=== PATIENT | male | born 1950 | race African-American/Black ===

== ENCOUNTER → 2018-01-09 | Outpatient (CLI) | payer MEDICARE, OTHER ==
[~2018-01-09] MED LIST: methylPREDNISolone ACETATE 40 MG/ML VIAL.; methylPREDNISolone ACETATE 80 MG/ML VIAL.
== END ==
LOC: PNCL 10:07
DX: M48.061 Spinal stenosis, lumbar region without neurogenic claudication (principal); M54.16 Radiculopathy, lumbar region; M19.90 Unspecified osteoarthritis, unspecified site; I10 Essential (primary) hypertension; E11.9 Type 2 diabetes mellitus without complications; C85.80 Other specified types of non-Hodgkin lymphoma, unspecified site; I25.10 Atherosclerotic heart disease of native coronary artery without angina pectoris; G40.89 Other seizures; Z98.890 Other specified postprocedural states; Z79.899 Other long term (current) drug therapy
CPT/HCPCS: 62323; J1030; J1040

== ENCOUNTER → 2018-01-23 | Outpatient (CLI) | payer MEDICARE, OTHER ==
[~2018-01-23] MED LIST changes: +IOHEXOL 180 MG/ML 10 ML VIAL.
== END ==
LOC: PNCL 10:05
DX: M54.16 Radiculopathy, lumbar region (principal); M48.061 Spinal stenosis, lumbar region without neurogenic claudication; I13.0 Hypertensive heart and chronic kidney disease with heart failure and stage 1 through stage 4 chronic kidney disease, or unspecified chronic kidney disease; E11.22 Type 2 diabetes mellitus with diabetic chronic kidney disease; N18.9 Chronic kidney disease, unspecified; G30.0 Alzheimer's disease with early onset; F02.80 Dementia in other diseases classified elsewhere, unspecified severity, without behavioral disturbance, psychotic disturbance, mood disturbance, and anxiety; E78.00 Pure hypercholesterolemia, unspecified; J44.9 Chronic obstructive pulmonary disease, unspecified; Z85.828 Personal history of other malignant neoplasm of skin; Z85.07 Personal history of malignant neoplasm of pancreas; Z82.49 Family history of ischemic heart disease and other diseases of the circulatory system
CPT/HCPCS: 62323; J1030; J1040; Q9965

== ENCOUNTER → 2018-02-07 | Outpatient (CLI) | payer MEDICARE, OTHER ==
[~2018-02-07] MED LIST changes: -IOHEXOL 180 MG/ML 10 ML VIAL.
== END | disposition home or self-care (01) ==
LOC: PNCL 10:24
DX: M48.061 Spinal stenosis, lumbar region without neurogenic claudication (principal); M54.16 Radiculopathy, lumbar region; G30.9 Alzheimer's disease, unspecified; F02.80 Dementia in other diseases classified elsewhere, unspecified severity, without behavioral disturbance, psychotic disturbance, mood disturbance, and anxiety; I11.0 Hypertensive heart disease with heart failure; I50.9 Heart failure, unspecified; E78.00 Pure hypercholesterolemia, unspecified; J44.9 Chronic obstructive pulmonary disease, unspecified; Z85.07 Personal history of malignant neoplasm of pancreas; E11.9 Type 2 diabetes mellitus without complications; F17.200 Nicotine dependence, unspecified, uncomplicated; Z85.828 Personal history of other malignant neoplasm of skin; Z85.72 Personal history of non-Hodgkin lymphomas; Z98.890 Other specified postprocedural states; Z98.49 Cataract extraction status, unspecified eye
CPT/HCPCS: 62323; J1030; J1040

== ENCOUNTER → 2019-10-22 | Outpatient (CLI) | payer MEDICARE, OTHER ==
[2014-03-19 11:00] VITALS: BP 113/69
[~2019-10-22] MED LIST changes: +ACET325T9 PO; +AMLO5TAB4 PO; +ASCO500C PO; +ASPI-630 PO; +CARV25TA2 PO; +CHOL200027 PO; +CITA40TA12 PO; +CLON0.5T PO; +CRESTOR40 MG PO; +DESV100T PO; +DICL100G18 TP; +DIVA500T2 PO; +DONE10TA14 PO; +FENO48TA16 PO; +GABA600T7 PO; +ICOS1CAP PO; +INSU100I13 SQ; +INSU100V31 SQ; +LEVE100020 PO; +LIPITOR80 MG PO; +LISI-334 PO; +MECL-75 PO; +MEMA10TA PO; +MULT-245 PO; +NIAC1000 PO; +NICO1PAT25 TD; +NITR0.4T24 SL; +OMEG1CAP6 PO; +OMEG300C PO; +PREG75CA PO; +QUET400T7 PO; +QUET50TA9 PO; +RANO10002 PO; +SILD50TA PO; +TRIA1CAP3 PO; +ZOLP10TA PO; -methylPREDNISolone ACETATE 40 MG/ML VIAL.; -methylPREDNISolone ACETATE 80 MG/ML VIAL.
[2019-10-22 14:56] LABS: BASO # 0.1 x10^3/uL (0.0-0.2); BASO % 1 % (0-3); EOS # 0.1 x10^3/uL (0.0-0.7); EOS % 2 % (0-3); HEMATOCRIT 39.3 % (39.0-53.0); HEMOGLOBIN 12.9 g/dL (13.0-17.5); LYMPH # 2.1 x10^3/uL (1.0-4.8); LYMPH % 39 % (24-48); MEAN CORPUSCULAR HEMOGLOBIN 33 pg (25-35); MEAN CORPUSCULAR HGB CONC 33 g/dL (31-37); MEAN CORPUSCULAR VOLUME 101 fL (79-100); MONO # 0.4 x10^3/uL (0.0-1.1); MONO % 7 % (0-9); NEUT # 2.8 x10^3/uL (1.8-7.7); NEUT % 51 % (31-73); PLATELET COUNT 203 x10^3/uL (140-400); RED BLOOD COUNT 3.89 x10^6/uL (4.30-5.70); RED CELL DISTRIBUTION WIDTH 14.7 % (11.5-14.5); WHITE BLOOD COUNT 5.5 x10^3/uL (4.0-11.0)
[2019-10-22 15:09] LABS: ALBUMIN 3.5 g/dL (3.4-5.0); ALBUMIN/GLOBULIN RATIO 0.9 (1.0-1.7); CALCIUM 8.1 mg/dL (8.5-10.1); CREATININE 1.3 mg/dL (0.7-1.3); GFR 66.2; TOTAL BILIRUBIN 0.4 mg/dL (0.2-1.0); TOTAL PROTEIN 7.2 g/dL (6.4-8.2)
[2019-10-23 00:07] LABS: HEMOGLOBIN A1C 7.1 % (4.8-5.6)
== END | disposition home or self-care (01) ==
LOC: SURGPAT 12:13
PROVIDERS: ATTEND Neurological Surgery
DX: Z01.818 Encounter for other preprocedural examination (principal); M48.062 Spinal stenosis, lumbar region with neurogenic claudication; D17.79 Benign lipomatous neoplasm of other sites; Z79.899 Other long term (current) drug therapy; Z88.0 Allergy status to penicillin; Z91.013 Allergy to seafood; Z91.041 Radiographic dye allergy status
CPT/HCPCS: 36415; 80053; 83036; 85025; 87641

== ENCOUNTER 2019-11-26 07:50 | Observation (INO) | payer MEDICARE, OTHER ==
--- NOTE | 2019-11-23 15:09 | HP ---
ADMIT DATE: 11/26/2019. DATE OF SURGERY: 11/26/2019 HISTORY OF PRESENT ILLNESS: The patient is a pleasant 69-year-old who has difficulty with low back pain and pain which radiates into legs. I saw him in 03/2018. I have recommended lumbar laminectomy from L4-S1 for severe epidural lipomatosis. He notes severe pain with standing. He rates his pain a 10/10. Sitting gives him relief. He has had epidural steroid injections in the last year, which did help him just temporarily though. PAST MEDICAL HISTORY: Hypertension, macular degeneration, IgA gammopathy Hodgkin's, tobaccoism, ED, hypercholesterolemia, seizures, chronic kidney disease, obstructive sleep apnea, diabetes, peripheral neuropathy, COPD, coronary artery disease, depression. PAST SURGICAL HISTORY: Cataract surgery, left wrist surgery, right knee surgery, pacemaker insertion in 1985, stents in 2009 and 2010. FAMILY HISTORY: Hypertension and brain aneurysm, stroke, cancer, diabetes, Alzheimer, seizures, heart disease, spine problems. SOCIAL HISTORY: He is . Retired. Drinks alcohol 1 time per week. Currently smokes occasionally. ALLERGIES: PENICILLIN, SHELLFISH AND IODINE. CURRENT MEDICATIONS: NovoLog, Lantus, Depakote, gabapentin, Keppra, Seroquel, Ambien, Celexa, Coreg, aspirin, Norvasc, Lipitor, nitroglycerin, Nicoderm CQ, lisinopril, [facility], Crestor, TriCor, sildenafil citrate diclofenac. REVIEW OF SYSTEMS: A 12-point review of systems was obtained and is noncontributory except for that mentioned above. PHYSICAL EXAMINATION: NEUROSURGERY EXAMINATION: GENERAL APPEARANCE: Alert, pleasant, no acute distress. HEAD: Normocephalic and atraumatic. SKIN: Warm and dry. MUSCULOSKELETAL: Lumbar paraspinal muscle bulk is normal, restricted range of motion of the lumbar spine, [id number] tenderness of the lower lumbar spine with palpation, normal range of motion of the lower extremities bilaterally. EXTREMITIES: No clubbing, cyanosis or edema. NEUROLOGIC: Alert and oriented x 3, normal recent and remote memory. Strength 5/5 in bilateral lower extremities, sensory was intact to light touch in bilateral lower extremities. Reflexes are present and symmetric in lower extremities bilaterally, negative straight leg raising bilaterally, ambulates with a cane. IMAGING: I reviewed a lumbar MRI scan. On that study, there is significant lumbar epidural lipomatosis, which is at L4 through S1. ASSESSMENT/ PLAN: I continue to agree with my recommendation previously given. I do think he should undergo lumbar laminectomy from L4 through sacrum. I would include decompression of the spinal canal to help relieve the stenosis related to epidural lipomatosis. I spoke about the surgery in detail with the patient. I included the technique, risks, and expected postoperative course. He understands. He would like to go ahead. We will make the arrangements. JILL MELÉNDEZ MD DR: TY/lennox JOB#: [id number] / [id number] TRAVIS
[~2019-11-26] VITALS: Ht 177.8 cm; Wt 121.1 kg
[2019-11-26] VITALS (9 sets, daily range): BP systolic 124–169; BP diastolic 84–104
[~2019-11-26 07:50] MED LIST changes: +BACITRACIN 50,000 UNIT in IV NORMAL SALINE 1000ML BAG 1,000 ML IRR ONE; +BUPIVACAINE-EPI 0.5%-1:200000 MPF 30 ML VIAL. ONE; +GELATIN SPONGE SIZE 100. ONE; +HYDROmorphone 2 MG/ML VIAL IV PRN; +IV RINGERS,LACTATED 1000ML 1,000 ML IV SCH; +KETOROLAC 60 MG/2 ML VIAL. ONE; +LIDOCAINE 1% PF 2 ML VIAL. ID PRN; +MORPHINE SULFATE 2 MG/ML VIAL. IV PRN; +PROCHLORPERAZINE 10 MG/2 ML VIAL. IV PRN; +THROMBIN TOPICAL 20,000 UNIT SPRAY.SYRN KIT TP ONE; +fentaNYL PF VIAL 100 MCG/2 ML VIAL IV PRN
[2019-11-26] MEDS ORDERED: VANCOMYCIN 1GM IVPB FOR OMNI 250 ML IV PRN (08:00)
[2019-11-26] MEDS ORDERED: REMIFENTANIL 2 MG VIAL. IV ONE (10:16)
[2019-11-26] MEDS ORDERED: LIDOCAINE 2% PF 5 ML VIAL. ONE (10:16)
[2019-11-26] MEDS ORDERED: PROPOFOL 0 ML IV ONE (10:16)
[2019-11-26] MEDS ORDERED: ROCURONIUM 50 MG/5 ML VIAL. ONE (10:16)
[2019-11-26] MEDS ORDERED: ONDANSETRON PF 4 MG/2 ML VIAL. ONE (10:16)
[2019-11-26] MEDS ORDERED: PROPOFOL 20 ML IV ONE (10:16)
[2019-11-26] MEDS ORDERED: PHENYLEPHRINE 10 MG/ML VIAL. ONE (10:16)
[2019-11-26] MEDS ORDERED: DEXAMETHASONE SOD PHOS 20 MG/5 ML VIAL. ONE (10:16)
[2019-11-26] MEDS ORDERED: 0.9 % SODIUM CHLORIDE 20 ML VIAL. IJ ONE ×2 (10:17→10:58)
[2019-11-26] MEDS ORDERED: MINERAL OIL/PETROLATUM,WHITE OPHTH OINT 3.5GM TUBE. ONE (10:17)
[2019-11-26] MEDS ORDERED: GLYCOPYRROLATE 1 MG/5 ML VIAL. ONE (10:53)
[2019-11-26] MEDS ORDERED: ceFAZolin SODIUM IV Push 1 GM VIAL. IVP ONE ×2 (10:58→12:15)
[2019-11-26] MEDS ORDERED: DESFLURANE > 120 MINUTES IH ONE (11:03)
[2019-11-26] MEDS ORDERED: ALBUTEROL SULFATE 2.5 MG/3 ML NEBU. NEB ONE (11:30)
[2019-11-26] MEDS ORDERED: PROPOFOL 100 ML IV ONE (12:44)
[2019-11-26] MEDS ORDERED: PROPOFOL 50 ML IV ONE ×2 (12:44→13:30)
[2019-11-26] MEDS ORDERED: REMIFENTANIL 1 MG VIAL. IV ONE (13:06)
[2019-11-26] MEDS ORDERED: fentaNYL PF VIAL 100 MCG/2 ML VIAL ONE (13:47)
[2019-11-26] MEDS ORDERED: ACETAMINOPHEN 325 MG TABLET. PO PRN ×2 (14:30→14:45)
[2019-11-26] MEDS ORDERED: DICLOFENAC SODIUM 1% TOPICAL GEL 100GM TUBE. TP PRN (14:30)
[2019-11-26] MEDS ORDERED: clonazePAM 0.5 MG TABLET PO PRN (14:30)
[2019-11-26] MEDS ORDERED: ZOLPIDEM TARTRATE 5 MG PO PRN (14:30)
[2019-11-26] MEDS ORDERED: CALCIUM CARBONATE 500 MG TAB.CHEW PO PRN (14:45)
[2019-11-26] MEDS ORDERED: oxyCODONE/APAP 5/325 1 TAB TABLET PO PRN (14:45)
[2019-11-26] MEDS ORDERED: ONDANSETRON PF 4 MG/2 ML VIAL. IVP PRN (14:45)
[2019-11-26] MEDS ORDERED: fentaNYL PF VIAL 100 MCG/2 ML VIAL IVP PRN (14:45)
[2019-11-26] MEDS ORDERED: METHOCARBAMOL 750 MG TABLET PO PRN (14:45)
[2019-11-26] MEDS ORDERED: NALOXONE 0.4 MG/ML VIAL. IV PRN (14:45)
[2019-11-26] MEDS ORDERED: 0.9 % SODIUM CHLORIDE 10 ML DISP.SYRIN. IV PRN (14:45)
[2019-11-26] MEDS ORDERED: MAG HYDROX/ALUMINUM HYD/SIMETH 30 ML ORAL.SUSP PO PRN (14:45)
[2019-11-26] MEDS ORDERED: diphenhydrAMINE HCL 25 MG CAPSULE PO PRN (14:45)
[2019-11-26] MEDS ORDERED: DEXTROSE 50% 25 GM / 50ML DISP.SYRIN. IV PRN (14:45)
[2019-11-26] MEDS ORDERED: MAGNESIUM HYDROXIDE 2,400 MG/30 ML ORAL.SUSP. PO PRN (14:45)
[2019-11-26] MEDS ORDERED: ZOLPIDEM 5 MG TABLET. PO PRN (14:45)
[2019-11-26] MEDS ORDERED: INSULIN LISPRO 100 UNIT/ML 3ML VIAL for OP,RR ONLY. SQ PRN (15:00)
--- NOTE | 2019-11-26 15:03 | OP ---
DATE OF SURGERY: 11/26/2019 PREOPERATIVE DIAGNOSIS: Epidural lipomatosis with lumbar spinal stenosis, L4, L5, S1. POSTOPERATIVE DIAGNOSIS: Epidural lipomatosis with lumbar spinal stenosis, L4, L5, S1. OPERATIONS PERFORMED: L4, L5, S1 laminectomy with debulking of epidural lipomatosis and release of dural and nerve root compression. The operation was done with EMG monitoring, SSEP monitoring, fluoroscopy, microscopic dissection. SURGEON: Rodney Meléndez M.D. OUTPATIENT PHYSICAL THERAPIST ASSISTANT: RYAN Sim assisted with the surgery. She assisted with the exposures, the laminectomy, the removal of the epidural lipomatosis material as well as the closure. OPERATIVE INDICATIONS: The patient is a pleasant 69-year-old, who developed intractable back and bilateral leg pain, which was extremely severe and failed to improve with conservative measures. On imaging studies, he was found to have severe lumbar spinal stenosis related to epidural lipomatosis and I recommended lumbar microsurgery. I spoke with him about the operation, the technique, and the expected postoperative course and he wished to go ahead. DESCRIPTION OF PROCEDURE: Following general endotracheal anesthesia, the patient was placed on the Edmond table in a prone position. His lumbar region was prepped and draped in standard fashion. ASUNCION hose and A-V impulse boots were applied for DVT prophylaxis. The microscope was draped, fluoroscopy was draped and brought into the field. Monitoring was established. Ancef 3 grams was given less than 1 hour prior to initiation of the surgery. Using fluoroscopic guidance, a midline incision was made extending from upper L4-S1. I dissected down through the subcutaneous tissue, reflected the paraspinal muscles, and placed Lynch retractors with 80 and 90 mm blades. At this time, I brought in the microscope. I exposed the spinous processes and the laminae reflecting the paraspinal musculature. I used a conical bur and drilled away the spinous processes and then switched to a matchstick bur and drilled a laminectomy extending from S1 through L5 up through L4. I then used a 2.5 and 4 mm Kerrison's beginning at L4 and working inferiorly and I trimmed bone and worked to visualize the second epidural lipomatosis material and I worked removing the ligament and then widely exposing the area. I then went back and began to tease back and remove fatty tissue using a Fabrice dental. I actually got out of the bone slightly and was able to remove a considerable amount of fat and the dura moved posteriorly very nicely. Over S1, I again went out laterally and inferiorly and removed further fatty material and again fully decompressed. At this point, then I removed the retractors, obtained hemostasis in the muscle. I irrigated copiously. At this point, this portion of the operation was somewhat tedious, the patient was quite deep, and the operation moved slowly at this point, but as time passed, I was able to obtain excellent hemostasis. I closed the muscular layer with interrupted absorbable sutures, followed by fascial closure, followed by subcutaneous tissue, followed by the skin with a 4-0 subcuticular stitch. The operation went very well. There were no problems with monitoring throughout. I felt that we had an excellent decompression. RODNEY MELÉNDEZ MD DR: TY/lennox JOB#: [id number] / [id number] TRAVIS
[2019-11-26] MEDS ORDERED: MECLIZINE HCL 12.5 MG TABLET. PO PRN (16:30)
[2019-11-26] MEDS ORDERED: POTASSIUM CL 20MEQ-0.45% NACL 1,000 ML IV SCH (16:45)
[2019-11-26] MEDS: GABAPENTIN 300 MG CAPSULE. PO SCH ×2 (17:59→20:51)
[2019-11-26] MEDS: DIVALPROEX DELAYED RELEASE 500 MG TABLET.DR. PO SCH ×2 (17:59→20:51)
[2019-11-26] MEDS: CARVEDILOL 12.5 MG TABLET. PO SCH (17:59)
[2019-11-26] MEDS: oxyCODONE/APAP 5/325 1 TAB TABLET PO PRN ×2 (18:00→22:58)
[2019-11-26] MEDS: NICOTINE 14MG PATCH. TD SCH (18:03)
[2019-11-26] MEDS: INSULIN LISPRO 300 UNITS/3 ML VIAL. SQ SCH (18:08)
[2019-11-26] MEDS: DOCUSATE SODIUM 100 MG CAPSULE. PO SCH (20:51)
[2019-11-26] MEDS: levETIRAcetam 500 MG TABLET PO SCH (20:51)
[2019-11-26] MEDS ORDERED: QUETIAPINE FUMARATE 400 MG PO SCH (21:00)
[2019-11-26] MEDS ORDERED: QUEtiapine 50 MG TAB.ER.24H. PO SCH (21:00)
[2019-11-26] MEDS ORDERED: INSULIN GLARGINE SYRINGE. SQ SCH (21:00)
[2019-11-26] MEDS ORDERED: NON FORMULARY ITEM (Rosuvastatin Calcium (Crestor) 20 MG) PO SCH (21:00)
[2019-11-26] MEDS ORDERED: ATORVASTATIN CALCIUM 40 MG TABLET. PO SCH (21:00)
[2019-11-26] MEDS ORDERED: QUEtiapine 300 MG TAB.ER.24H. PO SCH (21:00)
[2019-11-27 03:00] VITALS: BP 110/63
[2019-11-27 07:15] VITALS: BP 92/63
[2019-11-27] MEDS: CARVEDILOL 12.5 MG TABLET. PO SCH (08:32)
[2019-11-27] MEDS: levETIRAcetam 500 MG TABLET PO SCH (08:33)
[2019-11-27] MEDS: GABAPENTIN 300 MG CAPSULE. PO SCH ×2 (08:33→12:27)
[2019-11-27] MEDS: DIVALPROEX DELAYED RELEASE 500 MG TABLET.DR. PO SCH ×2 (08:33→12:28)
[2019-11-27] MEDS: DOCUSATE SODIUM 100 MG CAPSULE. PO SCH (08:34)
[2019-11-27] MEDS: oxyCODONE/APAP 5/325 1 TAB TABLET PO PRN ×2 (08:34→12:28)
[2019-11-27] MEDS: NICOTINE 14MG PATCH. TD SCH (08:38)
[2019-11-27] MEDS: INSULIN LISPRO 300 UNITS/3 ML VIAL. SQ SCH (08:42)
[2019-11-27] MEDS ORDERED: ICOSAPENT ETHYL PO SCH (09:00)
[2019-11-27] MEDS ORDERED: LISINOPRIL 20 MG TABLET PO SCH (09:00)
[2019-11-27] MEDS ORDERED: ASCORBIC ACID 500 MG TABLET PO SCH (09:00)
[2019-11-27] MEDS ORDERED: CHOLECALCIFEROL (VITAMIN D3) 1,000 UNIT TABLET PO SCH (09:00)
[2019-11-27] MEDS ORDERED: CITALOPRAM 20 MG TABLET. PO SCH (09:00)
[2019-11-27] MEDS ORDERED: FENOFIBRATE 54 MG TABLET. PO SCH (09:00)
[2019-11-27] MEDS ORDERED: ASPIRIN CHEWABLE 81 MG TABLET. PO SCH (09:00)
[2019-11-27] MEDS ORDERED: MULTIVITAMIN with MINERAL TABLET. PO SCH (09:00)
[2019-11-27] MEDS ORDERED: amLODIPine BESYLATE 5 MG TABLET PO SCH (09:00)
[2019-11-27 10:39] VITALS: BP 123/71
[2019-11-27] MEDS ORDERED: INSULIN LISPRO 300 UNITS/3 ML VIAL. SQ SCH (12:00)
[2019-11-27] MEDS ORDERED: DOCU-153 PO (12:13)
[2019-11-27] MEDS ORDERED: OXYC1TAB15 PO (12:13)
--- NOTE | 2019-11-27 12:15 | DISCH ---
DISCHARGE INSTRUCTIONS Condition on Discharge Condition on Discharge: Stable Activity After Discharge Activity Instructions for Disc: Activity as tolerated, Avoid exertion Other activity instructions: no driving for a week Bathing Instructions: Shower-keep dressing dry, No Tub Bath until see Lifting Instructions after Dis: No heavy lifting, No pulling or pushing, Do not lift >10 pounds Diet after Discharge Diet after Discharge: Diabetic No Calorie Level Additional Diet Restrictions: resume home diet Wound Incision Care Wound/Incision Care: Ice to area for comfort Other wound/incision instructi: may remove dressing in 48 hours if dry then may shower, no soaking Checks after Discharge Checks after discharge: Check blood sugar, ac/hs Contacting the DRScott after DC Call your doctor for: Concerns you may have Follow-Up Follow up with: Dr. Meléndez's nurse in 2 weeks [phone] JILL MELÉNDEZ MD Nov 27, 2019 12:14
--- NOTE | 2019-11-27 12:55 | DS ---
DATE OF DISCHARGE: 11/27/2019 DATE OF SURGERY: 11/26/2019 DISCHARGE DIAGNOSES: Epidural lipomatosis with lumbar spinal stenosis, L4, L5, S1. OPERATION PERFORMED: Laminectomy, L4, L5, S1 with debulking of epidural lipomatosis and release of dural and nerve root compression. HISTORY OF PRESENT ILLNESS: The patient is a pleasant 69-year-old who developed intractable back and bilateral leg pain, which was extremely severe and failed to improve with conservative measures. On imaging studies, he was found to have severe lumbar stenosis with epidural lipomatosis and I recommended lumbar microsurgery. I spoke with him about the surgery, the technique and the expected postoperative course. He understood and wished to proceed. HOSPITAL COURSE: He was admitted to the floor postoperatively where he has done well. He has been up ambulating in the room and in the halls. Physical therapy was initiated and instruction was given to him regarding his activities. His pain is well controlled and he is in good condition to discharge home. DISCHARGE MEDICATIONS: He will resume his medications per the MRAD. DISCHARGE INSTRUCTIONS: He was instructed regarding incision care, activity restrictions and expectations for the next several weeks. He will follow up in our office in 2 weeks. He understands to call us with any questions or concerns. JILL MELÉNDEZ MD DR: MIRTA/lennox JOB#: [id number] / [id number]
--- NOTE | 2019-11-29 09:07 | PATHOLOGY ---
[facility] Accession Number: [id number] . 01 Material submitted: . vertebral column - LUMBAR DECOMPRESSION . 01 Clinical history: . Lumbar stenosis with neurogenic claudication; epidural lipomatosis . 02 Diagnosis: Segments of fibrocartilaginous, fibroadipose, and skeletal muscle tissue and bone, lumbar decompression: - Degenerative changes of fibrocartilaginous tissue. S 11/28/2019 1716 Local . 02 Comment: There is no evidence of an acute inflammatory process or malignancy. (JPM/db; 11/28/2019) . 02 Electronically signed: . Yoshi Lynch MD, Pathologist NPI- [id number] . 01 Gross description: . The specimen is received in formalin, labeled "Pepe Mora, lumbar decompression". Received is a moderate amount of pink-cortes, gritty fibrous tissue admixed with fragments of bone measuring 5.5 x 5.2 x 0.9 cm in aggregate dimensions. The specimen is submitted representatively in cassette A1, following decalcification. (CAA; 11/27/2019) QA/QAC 11/27/2019 1622 Local . 02 Pathologist provided ICD-10: M51.36 . 02 CPT . 427710, [id number] Specimen Comment: A courtesy copy of this report has been sent to [phone] Specimen Comment: Report sent to Performed at: 01 [facility] [address], [place] [id number] MD Fernando Rodriguez MD Phone: [phone] Performed at: 02 [facility] [address], [place] [id number] MD Yoshi Lynch MD Phone: [phone]
== END 2019-11-27 13:41 | disposition home or self-care (01) ==
LOC: SURG 07:50 → 4 NORTH 16:14
PROVIDERS: ADMIT Neurological Surgery; ATTEND Neurological Surgery
DX: E88.2 Lipomatosis, not elsewhere classified (principal); M48.061 Spinal stenosis, lumbar region without neurogenic claudication; I12.9 Hypertensive chronic kidney disease with stage 1 through stage 4 chronic kidney disease, or unspecified chronic kidney disease; H35.30 Unspecified macular degeneration; E78.00 Pure hypercholesterolemia, unspecified; N18.9 Chronic kidney disease, unspecified; G47.33 Obstructive sleep apnea (adult) (pediatric); G62.9 Polyneuropathy, unspecified; J44.9 Chronic obstructive pulmonary disease, unspecified; I25.10 Atherosclerotic heart disease of native coronary artery without angina pectoris; F32.9 Major depressive disorder, single episode, unspecified; F17.210 Nicotine dependence, cigarettes, uncomplicated; Z98.49 Cataract extraction status, unspecified eye; Z95.0 Presence of cardiac pacemaker; Z98.890 Other specified postprocedural states
CPT/HCPCS: 63047; 63048; 76000; 82962; 96372; 97116; 97162; 97530; A7015; G0378; G0379; J0690; J1100; J1815; J1885; J2001; J2704; J3010; J3490; J7030; J7120; 88304; 88311; J2405

== ENCOUNTER → 2020-07-25 | Outpatient (CLI) | payer MEDICARE, OTHER ==
[~2020-07-25] MED LIST changes: -BACITRACIN 50,000 UNIT in IV NORMAL SALINE 1000ML BAG 1,000 ML IRR ONE; -BUPIVACAINE-EPI 0.5%-1:200000 MPF 30 ML VIAL. ONE; -DICL100G18 TP; +DICL100G54 TP; +DOCU-153 PO; +GADOTERATE 7.5 MMOL/15ML VIAL. IVP ONE; -GELATIN SPONGE SIZE 100. ONE; -HYDROmorphone 2 MG/ML VIAL IV PRN; -IV RINGERS,LACTATED 1000ML 1,000 ML IV SCH; -KETOROLAC 60 MG/2 ML VIAL. ONE; -LIDOCAINE 1% PF 2 ML VIAL. ID PRN; -MORPHINE SULFATE 2 MG/ML VIAL. IV PRN; +OXYC1TAB15 PO; +PREG-9 PO; -PREG75CA PO; -PROCHLORPERAZINE 10 MG/2 ML VIAL. IV PRN; -THROMBIN TOPICAL 20,000 UNIT SPRAY.SYRN KIT TP ONE; -fentaNYL PF VIAL 100 MCG/2 ML VIAL IV PRN
--- NOTE | 2020-07-25 12:47 | KCIC ---
LUMBAR SPINE WO/W CONTRAST Date: 07/25/2020 11:00 AM Indication: NEUROGENIC CLAUDICATION. Lumbar surgery 11/2019. LBP, BLE pain and numbness. Comparison: None. Technique: Multi-planar multi-weighted magnetic resonance imaging of the lumbar spine was performed with and without intravenous contrast using the standard lumbar spine protocol. 22 cc Clariscan contrast was administered intravenously during the examination. FINDINGS: Postsurgical changes of posterior decompression at L4-5 and L5-S1. Edema and enhancement of the posterior paraspinal soft tissues along the operative tract, likely postsurgical. No fluid collection. The lumbar spine is normally aligned. No acute fracture. Mild multilevel degenerative disc desiccation and disc height loss. No marrow replacing process to suggest malignancy. The conus terminates at a normal level. No abnormal signal is seen within the visualized distal spinal cord. No clumping of intrathecal nerve roots. Partially visualized right renal cyst. T12-L1: No disc bulge. No facet arthropathy. No significant spinal stenosis or neural foraminal narrowing. L1-L2: No disc bulge. No facet arthropathy. No significant spinal stenosis or neural foraminal narrowing. L2-L3: Disc bulge. Mild facet arthropathy. No significant spinal stenosis or neural foraminal narrowing. L3-L4: Disc bulge. Mild right and moderate left facet arthropathy. No significant spinal stenosis. Mild bilateral neural foraminal narrowing. L4-L5: Posterior decompression. Severe facet arthropathy. Mild spinal canal stenosis. Mild lateral recess narrowing. Mild to moderate right and moderate left neural foraminal narrowing. L5-S1: Posterior decompression. Prominent ventral epidural fat. Severe facet arthropathy. No spinal canal stenosis. Moderate right and mild left neural foraminal narrowing. IMPRESSION: [id number] lumbar spondylosis, detailed level by level above. No high-grade spinal canal stenosis. Electronically signed by: Fahad Villagran MD (07/25/2020 12:44 PM) [id number]
== END ==
LOC: KCIC MRI 10:36
PROVIDERS: ATTEND Neurological Surgery
DX: M47.817 Spondylosis without myelopathy or radiculopathy, lumbosacral region (principal); G03.9 Meningitis, unspecified; M48.07 Spinal stenosis, lumbosacral region; M48.062 Spinal stenosis, lumbar region with neurogenic claudication
CPT/HCPCS: 72158; 82565; A9575

== ENCOUNTER → 2020-08-25 | Outpatient (CLI) | payer MEDICARE, OTHER ==
[~2020-08-25] MED LIST changes: -GADOTERATE 7.5 MMOL/15ML VIAL. IVP ONE; +RIVA10TA PO
--- NOTE | 2020-08-25 13:10 | PDOC1 ---
INITIAL PAIN CONSULT DATE OF SERVICE: DOS: DATE: 08/25/20 TIME: 12:46 CHIEF COMPLAINT: Chief Complaint: Low back and bilateral lower extremity pain HISTORY OF PRESENT ILLNESS: 69-year-old male presents history of pain low back bilateral lower extremities for about 6 months now status post lumbar laminectomy and November 2019. Patient reports he did well for several months but but March this year pain again returned in the low back bilateral lower extremities posterior gluteus posterior thigh posterior calf worse with walking standing changing positions especially with walking patient ports he can sit and rest the pain goes down significantly but gets up and starts walking again and the pain returns fairly quickly patient reports has been disturbing him from sleep as well about every 2-3 times during the night causes increased urinary frequency but no loss of continence patient reports it is difficult for him to walk and is using a cane has it with him today and using in his right hand. Patient not had any formal physical therapies chiropractic treatments or other treatments currently he does do some exercise and stretching on his own however he is taking some Tylenol at home which helps has tried Motrin but it upsets his stomach. Patient did have MRI scan of the lumbar spine see dated July 25, 2020 showing posterior decompression at L4-5 with severe facet arthropathy mild spinal canal stenosis mild lateral recess narrowing mild to moderate right and moderate left neuroforaminal narrowing L5-S1 shows posterior decompression as well with severe facet arthropathy no spinal canal stenosis moderate right and mild left neuroforaminal narrowing. Reports no loss of motor function but significant fatigability. Patient rates his disability rating 0-10 10 being the worst as a 8 with family home responsibilities 9 with recreation 7 with social activity 10 with self-care activities 1 with occupation and 0 with life support activities. PAST MEDICAL HISTORY: PMH: Diabetes, hearing loss, pancreatic cancer 2008, lymphoma, hypertension, arthritis, shortness of breath, coronary artery disease PREVIOUS SURGERIES: Past Surgical Hx: Carpal tunnel release on the right, right knee scope, coronary artery stents CURRENT MEDICATIONS: Current Meds: Active Scripts Medications Dose Route/Sig Max Daily Dose Days Date Category Xarelto (Rivaroxaban) 10 Mg Tablet Unknown Dose PO DAILY 08/25/20 Reported Percocet 5-325 Mg Tablet (Oxycodone/Acetaminophen) 1 Each Tablet 1 Tab PO PRN Q4HRS PRN 11/27/19 Rx Vitamin D3 (Cholecalciferol (Vitamin D3)) 2,000 Unit Tablet 1,000 Unit PO DAILY05 10/24/19 Reported Vascepa (Icosapent Ethyl) 1 Gm Capsule 4 Cap PO DAILY 10/24/19 Reported Multi Vitamin Daily (Multivitamin) 1 Each Tablet 1 Each PO DAILY 10/24/19 Reported Meclizine Hcl 25 Mg Tablet 25 Mg PO PRN TID PRN 10/24/19 Reported Lantus Solostar (Insulin Glargine,Hum.rec.anlog) 100 Unit/1 Ml Insuln.pen 43 Unit SQ QHS 10/24/19 Reported Novolog (Insulin Aspart) 100 Unit/1 Ml Vial 24 Unit SQ NOON 10/24/19 Reported Novolog (Insulin Aspart) 100 Unit/1 Ml Vial 20 Unit SQ BIDAC 10/24/19 Reported Voltaren (Diclofenac Sodium) 100 Gm Gel..gram. 100 Gm TP PRN DAILY PRN 10/24/19 Reported NICODERM CQ 14mg (Nicotine) 1 Each Patch.td24 1 Patch TD DAILY 10/24/19 Reported Norvasc (Amlodipine Besylate) 5 Mg Tablet 5 Mg PO DAILY 10/24/19 Reported Tricor (Fenofibrate Nanocrystallized) 48 Mg Tablet 48 Mg PO DAILY 10/24/19 Reported Crestor (Rosuvastatin Calcium) 40 Mg Tablet 20 Mg PO HS 10/24/19 Reported Depakote (Divalproex Sodium) 500 Mg Tablet.dr 500 Mg PO QID 10/24/19 Reported Seroquel Xr (Quetiapine Fumarate) 400 Mg Tab.er.24h 400 Mg PO HS 10/24/19 Reported Keppra (Levetiracetam) 1,000 Mg Tablet 1,000 Mg PO BID 10/24/19 Reported Gabapentin 600 Mg Tablet 300 Mg PO QID 10/24/19 Reported Tylenol (Acetaminophen) 325 Mg Tablet 325 Mg PO PRN Q4HRS 03/14/14 Reported Vitamin C (Ascorbic Acid) 500 Mg Capsule.er 500 Mg PO DAILY 03/14/14 Reported Lipitor (Atorvastatin Calcium) 80 Mg Tablet 80 Mg PO HS 03/14/14 Reported Klonopin (Clonazepam) 0.5 Mg Tablet 0.5 Mg PO PRN Q4HRS PRN 03/14/14 Reported Ambien (Zolpidem Tartrate) 10 Mg Tablet 5 Mg PO HS PRN 03/14/14 Reported Carvedilol 25 Mg Tablet 25 Mg PO BID 03/14/14 Reported Lisinopril 20 Mg Tablet 20 Mg PO DAILY 03/14/14 Reported Aspirin 81 Mg Tab.chew 81 Mg PO DAILY 03/14/14 Reported Nitrostat (Nitroglycerin) 0.4 Mg Tab.subl 0.4 Mg SL 03/14/14 Reported Celexa (Citalopram Hydrobromide) 40 Mg Tablet 40 Mg PO DAILY 03/14/14 Reported ALLERGIES; Allergies: Coded Allergies: Penicillins (Unverified Allergy, Intermediate, 11/26/19) Sulfa (Sulfonamide Antibiotics) (Unverified Allergy, Intermediate, 11/26/19) iodine (Verified Allergy, Intermediate, Hives, 11/26/19) shellfish derived (Verified Allergy, Intermediate, 11/26/19) FAMILY HISTORY: Family Hx: Kidney disease strokes diabetes heart disease SOCIAL HISTORY: Social Hx: Patient drinks very little once or twice a week smoke cigarettes since 1959. Patient reports he is lives with his spouse is currently retired lives locally in [facility] REVIEW OF SYSTEMS: ROS: Positive for those items mentioned in history of present illness, all systems are reviewed, otherwise negative, is complete full and well-documented on patient's chart PHYSICAL EXAM: VS: Blood pressure is 146/78 pulse durations 18 temperature is 98.4 F height is 5 foot 10 inches weight is 244 pounds PE: PHYSICAL EXAMINATION: GENERAL: The patient is awake, alert, oriented, appropriate, very pleasant demeanor HEENT: Shows normocephalic, atraumatic. Extraocular movements are intact and symmetrical. Oral cavity: Mucous membranes moist and pink. NECK: Shows anterior throat supple without palpable lymphadenopathy noted. Swallow reflex symmetrical. CHEST: Shows normal on inspection. Breath sounds are clear bilaterally, no rale s rhonchi wheezes auscultated. HEART: Shows S1, S2 clear. No murmurs auscultated. ABDOMEN: Soft, nontender, nondistended, obese. No palpable organomegaly is noted. No rebound or guarding demonstrated. BACK: Shows spine grossly in the midline. Normal-appearing cervical lordotic curvature. There is slightly increased thoracic kyphosis, some minor flattening of the lumbar lordotic curvature. Well-healed surgical scar noted in the midline. Lumbar paraspinous muscles show symmetrical on inspection, on palpation shows some moderate tenderness diffusely throughout the upper, middle and lower distribution of the paraspinous muscles bilaterally and also into the lower thoracic paraspinous musculature, firm and tender, but without specific trigger points, without radiation of pain. The patient has good rotational motion of the lumbar spine, both laterally as well as extension and flexion without significant difficulty. No tenderness over the spinous processes, sacrum or sacroiliac regions. EXTREMITIES: Lower extremities show deep tendon reflexes 1+ in the patellar and tendo calcaneus tendons. Motor exam is 4 on a scale of 5 with right dorsiflexion, extension, quadriceps and hamstring flexion and 4/5 on the left. Peripheral pulses are 1+ posterior tibial. No peripheral edema is noted bilaterally. Lower extremities are warm and dry to touch, equal in color and appearance. Straight leg raise noted to be negative bilaterally. Gaenslen's and Conor's maneuvers are negative bilaterally as well. The patient is able to stand, has difficulty trying to stand on his toes and walks with a significant favoring gait does appear to favor the right lower extremity greater than left has a cane in his right hand.. SKIN: Shows warm and dry, good turgor. No edema. No sores, rashes or bruising throughout. IMPRESSION: Impression: 69-year-old male with approximate 6-month history increasing pain low back bilateral lower extremities in a radicular fashion MRI scan lumbar spine as noted Diabetes Hypertension Anticoagulation therapy Plan: Options were discussed with patient daily conservative medical management physical therapies interventional techniques effects interventional techniques. We discussed a lumbar epidural steroid injection using description as well as anatomical models to describe the procedure. We will check with patient's prescribing physician to hold his Xarelto for 2 days prior to potential injection. If deemed safe and appropriate will have him return and we will plan on lumbar epidural steroid injection at that time. In the meantime patient will continue doing stretching strength exercises taking [id number] medications as currently. JULIANNE CLEMENT MD Aug 25, 2020 13:10
== END | disposition home or self-care (01) ==
LOC: PNCL 10:17
PROVIDERS: ATTEND Anesthesiology
DX: M79.605 Pain in left leg (principal); M79.604 Pain in right leg; M54.5 Low back pain; M48.061 Spinal stenosis, lumbar region without neurogenic claudication; I25.10 Atherosclerotic heart disease of native coronary artery without angina pectoris; M19.90 Unspecified osteoarthritis, unspecified site; C25.9 Malignant neoplasm of pancreas, unspecified; I13.0 Hypertensive heart and chronic kidney disease with heart failure and stage 1 through stage 4 chronic kidney disease, or unspecified chronic kidney disease; I50.9 Heart failure, unspecified; N18.30 Chronic kidney disease, stage 3 unspecified; I48.91 Unspecified atrial fibrillation; J44.9 Chronic obstructive pulmonary disease, unspecified; E78.00 Pure hypercholesterolemia, unspecified; E11.22 Type 2 diabetes mellitus with diabetic chronic kidney disease; F41.9 Anxiety disorder, unspecified; F32.9 Major depressive disorder, single episode, unspecified; Z85.828 Personal history of other malignant neoplasm of skin; Z79.84 Long term (current) use of oral hypoglycemic drugs; Z79.82 Long term (current) use of aspirin; Z79.899 Other long term (current) drug therapy; Z98.890 Other specified postprocedural states; Z82.49 Family history of ischemic heart disease and other diseases of the circulatory system; Z88.0 Allergy status to penicillin; Z88.2 Allergy status to sulfonamides; Z91.013 Allergy to seafood; Z91.041 Radiographic dye allergy status
CPT/HCPCS: G0463

== ENCOUNTER → 2020-09-10 | Outpatient (CLI) | payer MEDICARE, OTHER ==
[~2020-09-10] MED LIST changes: +IOHEXOL 180 MG/ML 10 ML VIAL. ONE; +methylPREDNISolone ACETATE 40 MG/ML VIAL. ONE; +methylPREDNISolone ACETATE 80 MG/ML VIAL. ONE
--- NOTE | 2020-09-10 10:22 | PDOC ---
Progress Note - Pain Clinic Date of Service: DOS: DATE: 09/10/20 TIME: 10:19 Diagnosis: Dx: Lumbar radiculopathy with lumbar degenerative disc disease lumbar spinal stenosis with neurogenic claudication and post lumbar laminectomy syndrome History or Present Illness: HPI: 70-year-old male returns follow-up status post initial evaluation and preauthorization for lumbar epidural steroid injection. Patient reports still significant pain in the low back and bilateral lower extremities right essentially equal to left at this time with walking standing changing positions better with sitting or laying down patient ports it generally does not awaken her from sleep at night but over the past week or 2 it has about every 4 hours of low back bilateral lower extremities with pain rating posterior gluteus posterior thighs posterior calves bilaterally. Patient reports his pain is a 10 on scale 10 is worst 8 on average and 8 its least is an 8 today. Patient describes pain as aching and sharp in the back shooting in the lower extremities tingling in the legs stabbing pain in the back as well becoming more constant and unbearable at times with weightbearing. Patient reports no new motor or sensory deficits no new bowel or bladder incontinence or other complaints. Physical Exam: VS: Blood pressure is 160/80 pulse 66 respirations 18 temperature 90.4 F height is 5 feet 10 inches weight is 216 pounds PE: PHYSICAL EXAMINATION: GENERAL: The patient is awake, alert, oriented, appropriate, very pleasant demeanor HEENT: Shows normocephalic, atraumatic. Extraocular movements are intact and symmetrical. Oral cavity: Mucous membranes moist and pink. NECK: Shows anterior throat supple without palpable lymphadenopathy noted. Swallow reflex symmetrical. CHEST: Shows normal on inspection. Breath sounds are clear bilaterally no rales rhonchi or wheezes. HEART: Shows S1, S2 clear. No murmurs auscultated. ABDOMEN: Soft, nontender, nondistended, obese. No palpable organomegaly is noted. BACK: Shows spine grossly in the midline. Normal-appearing cervical lordotic curvature. There is slightly increased thoracic kyphosis, some minor flattening of the lumbar lordotic curvature. Lumbar paraspinous muscles show symmetrical on inspection, on palpation shows some moderate tenderness diffusely throughout the upper, middle and lower distribution of the paraspinous muscles without specific trigger points, without radiation of pain. The patient has good rotational motion of the lumbar spine, both laterally as well as extension and flexion without significant difficulty. No tenderness over the spinous processes, sacrum or sacroiliac regions. EXTREMITIES: Lower extremities show deep tendon reflexes 1+ in the patellar and tendo calcaneus tendons. Motor exam is 4 on a scale of 5 with right dorsiflexion, extension, quadriceps and hamstring flexion and 4/5 on the left. Peripheral pulses are 1+ posterior tibial. No peripheral edema is noted bilaterally. Lower extremities are warm and dry to touch, equal in color and appearance. SKIN: Shows warm and dry, good turgor. No edema. No sores, rashes or bruising throughout. Procedure: Procedure: Options were discussed with the patient. Patient chart was reviewed his his current medication regimen updated current review of systems updated today as well. We will proceed with a lumbar epidural steroid injection today with fluoroscopic guidance, risks were discussed including but not limited to: Bleeding, infection, possibility of epidural hematoma and subsequent neurological compromise, dural puncture, headaches, spinal cord and/or nerve damage, side effects of steroid medication, and poor results regarding pain control. Patient understands wished to proceed patient will return to clinic in approximately 2 weeks for follow-up, was counseled as to return appointment activity level and side effects to be aware of.. Medication Injected: Med Injected: Procedure is lumbar epidural steroid injection under local anesthetic using sterile prep and drape at the L5-S1 level using C-arm fluoroscopic guidance in both AP and lateral views medications injected is 120 mg Depo-Medrol + 10 mL preservative-free normal saline and 2 mL contrast- condition at discharge is st able patient tolerated procedure well had no complications. Condition at Discharge: Condition at Discharge: Condition at discharge is stable, patient tolerated procedure well and had no complications. JULIANNE CLEMENT MD Sep 10, 2020 10:22
== END | disposition home or self-care (01) ==
LOC: PNCL 09:54
PROVIDERS: ATTEND Anesthesiology
DX: M51.16 Intervertebral disc disorders with radiculopathy, lumbar region (principal); M48.062 Spinal stenosis, lumbar region with neurogenic claudication; M96.1 Postlaminectomy syndrome, not elsewhere classified; I13.0 Hypertensive heart and chronic kidney disease with heart failure and stage 1 through stage 4 chronic kidney disease, or unspecified chronic kidney disease; I50.9 Heart failure, unspecified; E11.22 Type 2 diabetes mellitus with diabetic chronic kidney disease; N18.30 Chronic kidney disease, stage 3 unspecified; E78.00 Pure hypercholesterolemia, unspecified; I48.91 Unspecified atrial fibrillation; I25.10 Atherosclerotic heart disease of native coronary artery without angina pectoris; J44.9 Chronic obstructive pulmonary disease, unspecified; M19.90 Unspecified osteoarthritis, unspecified site; F41.9 Anxiety disorder, unspecified; F32.9 Major depressive disorder, single episode, unspecified; F17.210 Nicotine dependence, cigarettes, uncomplicated; Z85.828 Personal history of other malignant neoplasm of skin; Z79.82 Long term (current) use of aspirin; Z79.84 Long term (current) use of oral hypoglycemic drugs; Z79.899 Other long term (current) drug therapy; Z72.89 Other problems related to lifestyle; Z88.0 Allergy status to penicillin; Z88.2 Allergy status to sulfonamides; Z91.013 Allergy to seafood; Z91.041 Radiographic dye allergy status; Z88.8 Allergy status to other drugs, medicaments and biological substances; Z82.49 Family history of ischemic heart disease and other diseases of the circulatory system
CPT/HCPCS: 62323; J1030; J1040; Q9965

== ENCOUNTER → 2020-11-07 | Outpatient (CLI) | payer MEDICARE, OTHER ==
[~2020-11-07] MED LIST changes: -LISI-334 PO; +LISI20TA18 PO
--- NOTE | 2020-11-07 11:22 | PDOC4 ---
PROCEDURE Procedure Patient was consented for lumbar epidural steroid injection. Risks were dis cussed including but not limited to: Bleeding, infection, possibility of epidural hematoma and subsequent neurological compromise, dural puncture, headaches, spinal cord and/or nerve damage, side effects of steroid medication, and poor results regarding pain control. Patient understands and wished to proceed. Procedure is lumbar epidural steroid injection under local anesthetic using sterile prep and drape at the L5-S1 level using C-arm fluoroscopic guidance in both AP and lateral views medications injected is 120 mg Depo-Medrol + 10 mL preservative-free normal saline and 2 mL contrast- condition at discharge is stable patient tolerated procedure well had no complications. JULIANNE CLEMENT MD Nov 07, 2020 11:22
--- NOTE | 2020-11-07 11:22 | PDOC ---
Progress Note - Pain Clinic Date of Service: DOS: DATE: 11/07/20 TIME: 11:19 Diagnosis: Dx: Lumbar radiculopathy with lumbar degenerative disc disease lumbar spinal stenosis with neurogenic claudication and post lumbar laminectomy syndrome History or Present Illness: HPI: 70-year-old male returns follow-up status post lumbar epidural steroid injection x1 recently seen September 10, 2020. Patient reports about 75% improvement initially but now down about 30% improvement overall in the low back and bilateral lower extremities. Patient reported pain is a 10 on scale 10 is worse over the past week 9 on average 8 its least is a 9 today patient ports that sharp and tight dull aching in the back shooting the legs bilaterally posterior gluteus posterior thighs posterior calves to the ankles right and left essentially equal patient ports is tingling and stabbing as well in the legs can be constant with activity. Patient reports initially was doing much better with distance walking doing household activities travel with greater distance and ease and sleeping better at night patient reports still wakes him about once a night if he has his leg straight. Reports that the walking is the most painful condition at this time and standing or sitting is much better. Patient reports no new motor or sensory deficits no new bladder incontinence or other complaints. Physical Exam: VS: Blood pressure is 144/88 pulse 76 respirations 20 temperature is 90.5 F height is 5 foot 10 inches weight 261 pounds PE: PHYSICAL EXAMINATION: GENERAL: The patient is awake, alert, oriented, appropriate, very pleasant demeanor HEENT: Shows normocephalic, atraumatic. Extraocular movements are intact and symmetrical. NECK: Shows anterior throat supple without palpable lymphadenopathy noted. Swallow reflex symmetrical. CHEST: Shows normal on inspection. Breath sounds are clear bilaterally. HEART: Shows S1, S2 clear. No murmurs auscultated. ABDOMEN: Soft, nontender, nondistended, obese. No palpable organomegaly is noted. BACK: Shows spine grossly in the midline. Normal-appearing cervical lordotic curvature. There is slightly increased thoracic kyphosis, some minor flattening of the lumbar lordotic curvature. Well-healed midline surgical scar is noted in the lumbar distribution. Lumbar paraspinous muscles show symmetrical on inspection, on palpation shows some moderate tenderness diffusely throughout the upper, middle and lower distribution of the paraspinous muscles without specific trigger points, without radiation of pain. The patient has good rotational motion of the lumbar spine, both laterally as well as extension and flexion without significant difficulty. EXTREMITIES: Lower extremities show deep tendon reflexes 1+ in the patellar and tendo calcaneus tendons. Motor exam is 4 on a scale of 5 with right dorsiflexion, extension, quadriceps and hamstring flexion and 4/5 on the left. Peripheral pulses are 1+ posterior tibial. No peripheral edema is noted bilaterally. Lower extremities are warm and dry to touch, equal in color and appearance. SKIN: Shows warm and dry, good turgor. No edema. No sores, rashes or bruising throughout. Procedure: Procedure: Options were discussed with the patient. Patient chart reviewed his current medication regimen updated current review of systems updated today as well. We will proceed with a second in the series lumbar epidural to injection today with fluoroscopic guidance. Risks were discussed including but not limited to: Bleeding, infection, possibility of epidural hematoma and subsequent neurological compromise, dural puncture, headaches, spinal cord and/or nerve damage, side effects of steroid medication, and poor results regarding pain control. Patient understands and wished to proceed. Patient will return to clinic in approximate 2 weeks for follow-up, was counseled as to return appointment to level, and side effects to be aware of. Medication Injected: Med Injected: Procedure is lumbar epidural steroid injection under local anesthetic using sterile prep and drape at the L5-S1 level using C-arm fluoroscopic guidance in both AP and lateral views medications injected is 120 mg Depo-Medrol + 10 mL preservative-free normal saline and 2 mL contrast- condition at discharge is stable patient tolerated procedure well had no complications. Condition at Discharge: Condition at Discharge: Condition at discharge stable, patient tolerated procedure well and had no complications JULIANNE CLEMENT MD Nov 07, 2020 11:22
== END | disposition home or self-care (01) ==
LOC: PNCL 10:54
PROVIDERS: ATTEND Anesthesiology
DX: M51.16 Intervertebral disc disorders with radiculopathy, lumbar region (principal); M48.062 Spinal stenosis, lumbar region with neurogenic claudication; M96.1 Postlaminectomy syndrome, not elsewhere classified; I13.0 Hypertensive heart and chronic kidney disease with heart failure and stage 1 through stage 4 chronic kidney disease, or unspecified chronic kidney disease; E11.22 Type 2 diabetes mellitus with diabetic chronic kidney disease; N18.30 Chronic kidney disease, stage 3 unspecified; I50.9 Heart failure, unspecified; I48.91 Unspecified atrial fibrillation; E78.00 Pure hypercholesterolemia, unspecified; E11.9 Type 2 diabetes mellitus without complications; M19.90 Unspecified osteoarthritis, unspecified site; F41.9 Anxiety disorder, unspecified; F32.9 Major depressive disorder, single episode, unspecified; F17.210 Nicotine dependence, cigarettes, uncomplicated; Z85.828 Personal history of other malignant neoplasm of skin; Z98.890 Other specified postprocedural states; Z79.82 Long term (current) use of aspirin; Z79.4 Long term (current) use of insulin; Z79.899 Other long term (current) drug therapy; Z88.0 Allergy status to penicillin; Z88.2 Allergy status to sulfonamides; Z88.8 Allergy status to other drugs, medicaments and biological substances; Z91.013 Allergy to seafood; Z91.041 Radiographic dye allergy status; Z82.49 Family history of ischemic heart disease and other diseases of the circulatory system
CPT/HCPCS: 62323; J1030; J1040; Q9965

== ENCOUNTER → 2020-11-28 | Outpatient (CLI) | payer MEDICARE, OTHER ==
--- NOTE | 2020-11-28 10:36 | PDOC4 ---
PROCEDURE Procedure Patient was consented for lumbar epidural steroid injection. Risks were dis cussed including but not limited to: Bleeding, infection, possibility of epidural hematoma and subsequent neurological compromise, dural puncture, headaches, spinal cord and/or nerve damage, side effects of steroid medication, and poor results regarding pain control. Patient understands and wished to proceed. Procedure is lumbar epidural steroid injection under local anesthetic using sterile prep and drape at the L5-S1 level using C-arm fluoroscopic guidance in both AP and lateral views medications injected is 120 mg Depo-Medrol + 10 mL preservative-free normal saline and 2 mL contrast- condition at discharge is stable patient tolerated procedure well had no complications. JULIANNE CLEMENT MD Nov 28, 2020 10:36
--- NOTE | 2020-11-28 10:36 | PDOC ---
Progress Note - Pain Clinic Date of Service: DOS: DATE: 11/28/20 TIME: 10:32 Diagnosis: Dx: Lumbar radiculopathy with lumbar degenerative disc disease lumbar spinal stenosis with neurogenic claudication and post lumbar laminectomy syndrome History or Present Illness: HPI: 70-year-old male returns in follow-up status post lumbar epidural steroid injection x2 last seen November 07, 2020. Patient which did very well about 80% improvement for the first week or 2 and the pain beginning to return in the low back and bilateral lower extremities mostly the posterior gluteus posterior thighs posterior calves right essentially equal to left. Patient reports initially was doing much better with distance walking doing household activities travel with greater ease and comfort and sleeping better at night. Patient reports the pain is returning now in the low back and legs rated as a 10 on scale 10 is worse over the past week 8 on average 8 its least is 8 today patient describes pain as sharp and shooting in the low back and legs tingling in the leg stabbing in the back can be constant severe with extended walking or standing. Patient reports that he generally sleeps fairly well at night but occasionally awaken him from sleep but if he curls up in a position it does help the pain and he is able to sleep. Patient reports no new motor or sensory deficits no new bowel or bladder incontinence or other complaints. Physical Exam: VS: Pressure is 163/83 pulse 77 respirations 18 temperature 98.3 F weight is 263 pounds PE: PHYSICAL EXAMINATION: GENERAL: The patient is awake, alert, oriented, appropriate, very pleasant demeanor HEENT: Shows normocephalic, atraumatic. Extraocular movements are intact and symmetrical. Patient wearing eyeglasses. Oral cavity: Mucous membranes moist and pink. NECK: Shows anterior throat supple without palpable lymphadenopathy noted. Swallow reflex symmetrical. CHEST: Shows normal on inspection. Breath sounds are clear bilaterally, no rales or rhonchi. HEART: Shows S1, S2 clear. No murmurs auscultated. ABDOMEN: Soft, nontender, nondistended, obese. No palpable organomegaly is noted. BACK: Shows spine grossly in the midline. Normal-appearing cervical lordotic curvature. There is slightly increased thoracic kyphosis, some minor flattening of the lumbar lordotic curvature. Lumbar paraspinous muscles show symmetrical on inspection, on palpation shows some moderate tenderness diffusely throughout the upper, middle and lower distribution of the paraspinous muscles, but without specific trigger points, without radiation of pain. The patient has good rotational motion of the lumbar spine, both laterally as well as extension and flexion without significant difficulty. EXTREMITIES: Lower extremities show deep tendon reflexes 1+ in the patellar and tendo calcaneus tendons. Motor exam is 4 on a scale of 5 with right dorsiflexion, extension, quadriceps and hamstring flexion and 4/5 on the left. Peripheral pulses are 1+ posterior tibial. No peripheral edema is noted bilaterally. Lower extremities are warm and dry to touch, equal in color and appearance. SKIN: Shows warm and dry, good turgor. No edema. No sores, rashes or bruising throughout. Procedure: Procedure: Options were discussed with the patient. Patient's old chart was reviewed, as was his current medication regimen updated, and current review of systems updated today as well. We will proceed with a third in the series lumbar epidural steroid injection today with fluoroscopic guidance. Risks were discussed including but not limited to: Bleeding, infection, possibility of epidural hematoma and subsequent neurological compromise, dural puncture, headaches, spinal cord and/or nerve damage, side effects of steroid medication, and poor results regarding pain control. Patient understands and wished to proceed. Patient will return to clinic in approximately 2 weeks for follow-up was counseled as return appointment to fill and side effects to be aware of. Medication Injected: Med Injected: Procedure is lumbar epidural steroid injection under local anesthetic using s terile prep and drape at the L5-S1 level using C-arm fluoroscopic guidance in both AP and lateral views medications injected is 120 mg Depo-Medrol + 10 mL preservative-free normal saline and 2 mL contrast- condition at discharge is stable patient tolerated procedure well had no complications. Condition at Discharge: Condition at Discharge: Condition at discharge stable, patient tolerated procedure well and had no complications. JULIANNE CLEMENT MD Nov 28, 2020 10:36
== END | disposition home or self-care (01) ==
LOC: PNCL 09:46
PROVIDERS: ATTEND Anesthesiology
DX: M51.16 Intervertebral disc disorders with radiculopathy, lumbar region (principal); M48.061 Spinal stenosis, lumbar region without neurogenic claudication; M48.062 Spinal stenosis, lumbar region with neurogenic claudication; M96.1 Postlaminectomy syndrome, not elsewhere classified; I13.0 Hypertensive heart and chronic kidney disease with heart failure and stage 1 through stage 4 chronic kidney disease, or unspecified chronic kidney disease; I50.9 Heart failure, unspecified; N18.30 Chronic kidney disease, stage 3 unspecified; E78.00 Pure hypercholesterolemia, unspecified; I48.91 Unspecified atrial fibrillation; E11.22 Type 2 diabetes mellitus with diabetic chronic kidney disease; F41.9 Anxiety disorder, unspecified; F32.9 Major depressive disorder, single episode, unspecified; J44.9 Chronic obstructive pulmonary disease, unspecified; F17.210 Nicotine dependence, cigarettes, uncomplicated; Z85.828 Personal history of other malignant neoplasm of skin; Z79.899 Other long term (current) drug therapy; Z98.890 Other specified postprocedural states; Z79.4 Long term (current) use of insulin; Z72.89 Other problems related to lifestyle; Z88.0 Allergy status to penicillin; Z88.2 Allergy status to sulfonamides; Z91.013 Allergy to seafood; Z88.8 Allergy status to other drugs, medicaments and biological substances; Z82.49 Family history of ischemic heart disease and other diseases of the circulatory system; Z91.041 Radiographic dye allergy status
CPT/HCPCS: 62323; J1030; J1040; Q9965

== ENCOUNTER → 2020-12-12 | Outpatient (CLI) | payer MEDICARE, OTHER ==
[~2020-12-12] MED LIST changes: -IOHEXOL 180 MG/ML 10 ML VIAL. ONE; -methylPREDNISolone ACETATE 40 MG/ML VIAL. ONE; -methylPREDNISolone ACETATE 80 MG/ML VIAL. ONE
--- NOTE | 2020-12-12 10:54 | PDOC ---
Progress Note - Pain Clinic Date of Service: DOS: DATE: 12/12/20 TIME: 10:50 Diagnosis: Dx: Lumbar radiculopathy with lumbar degenerative disc disease lumbar spinal stenosis with neurogenic claudication, lumbar and lumbosacral spondylosis, and post lumbar laminectomy syndrome History or Present Illness: HPI: 70-year-old male returns follow-up status post lumbar epidural steroid injection x3. Patient reports about 80% improvement initially now about 30% improvement but still doing well patient reports his pain in his lower extremities is much better his main complaint is pain across the low back itself without significant radiation to the lower extremities which is more noticeable with standing and walking better with sitting or laying down generally does not awaken him from sleep at night but can a little not more than once every 7-8 hours. Patient reports this is infrequent. Patient reports the pain is across the low back better with sitting laying down worse with standing patient reports is a 7 on scale 10 is worse over the past week 7 on average for its least is a 7 today patient describes pain is sharp and tight with some stabbing pain that can be tingling on and off in intensity in the low back itself. Patient reports no new motor or sensory deficits no new bowel or bladder incontinence or other complaints. Physical Exam: VS: Blood pressure is 116/90 pulse 75 respirations 20 temperature is 98.1 F weight is 254 pounds PE: PHYSICAL EXAMINATION: GENERAL: The patient is awake, alert, oriented, appropriate, very pleasant demeanor HEENT: Shows normocephalic, atraumatic. Extraocular movements are intact and symmetrical. NECK: Shows anterior throat supple without palpable lymphadenopathy noted. Swallow reflex symmetrical. CHEST: Shows normal on inspection. Breath sounds are clear bilaterally, no rales rhonchi or wheezes auscultated. HEART: Shows S1, S2 clear. No murmurs auscultated. ABDOMEN: Soft, nontender, nondistended, obese. No palpable organomegaly is noted. BACK: Shows spine grossly in the midline. Normal-appearing cervical lordotic curvature. There is slightly increased thoracic kyphosis, some minor flattening of the lumbar lordotic curvature. Lumbar paraspinous muscles show symmetrical on inspection, on palpation shows some moderate tenderness diffusely throughout the upper, middle and lower distribution of the paraspinous muscles, but without specific trigger points, without radiation of pain. The patient has good rotational motion of the lumbar spine, both laterally as well as extension flexion with some moderate tenderness with extension and axial loading of the lumbar spine better with forward flexion at 45 degrees. Right left lateral rotation shows some moderate tenderness diffusely bilaterally greater than 10 degrees but without radiation as well. No tenderness over the spinous processes, sacrum or sacroiliac regions. EXTREMITIES: Lower extremities show deep tendon reflexes 1+ in the patellar and tendo calcaneus tendons. Motor exam is 4 on a scale of 5 with right dorsiflexion, extension, quadriceps and hamstring flexion and 4/5 on the left. Peripheral pulses are 1+ posterior tibial. No peripheral edema is noted bilaterally. Lower extremities are warm and dry to touch, equal in color and appearance. SKIN: Shows warm and dry, good turgor. No edema. No sores, rashes or bruising throughout. Procedure: Procedure: Options were discussed with the patient. Patient chart reviews his current medication regimen updated current review of systems updated today as well. Patient feels he is doing fairly well at this time we are any further injections today. We did discuss potential lumbar facet joint injections as he has some significant axial pain but he would like to give this some time and we will see how this feels in a few weeks. At this time, the patient will follow up on an as-needed basis. Patient continue with stretching strength exercises as well as walking as tolerated. Medication Injected: Med Injected: None Condition at Discharge: Condition at Discharge: Condition at discharge is stable. JULIANNE CLEMENT MD Dec 12, 2020 10:54
== END | disposition home or self-care (01) ==
LOC: PNCL 09:48
PROVIDERS: ATTEND Anesthesiology
DX: M51.16 Intervertebral disc disorders with radiculopathy, lumbar region (principal); M48.062 Spinal stenosis, lumbar region with neurogenic claudication; M96.1 Postlaminectomy syndrome, not elsewhere classified; M47.27 Other spondylosis with radiculopathy, lumbosacral region; I13.0 Hypertensive heart and chronic kidney disease with heart failure and stage 1 through stage 4 chronic kidney disease, or unspecified chronic kidney disease; I50.9 Heart failure, unspecified; E78.00 Pure hypercholesterolemia, unspecified; J44.9 Chronic obstructive pulmonary disease, unspecified; I48.91 Unspecified atrial fibrillation; E11.22 Type 2 diabetes mellitus with diabetic chronic kidney disease; N18.30 Chronic kidney disease, stage 3 unspecified; M19.90 Unspecified osteoarthritis, unspecified site; F41.9 Anxiety disorder, unspecified; F29 Unspecified psychosis not due to a substance or known physiological condition; F17.210 Nicotine dependence, cigarettes, uncomplicated; Z85.828 Personal history of other malignant neoplasm of skin; Z79.82 Long term (current) use of aspirin; Z79.4 Long term (current) use of insulin; Z72.89 Other problems related to lifestyle; Z88.0 Allergy status to penicillin; Z88.2 Allergy status to sulfonamides; Z91.013 Allergy to seafood; Z91.041 Radiographic dye allergy status
CPT/HCPCS: G0463

== ENCOUNTER → 2021-02-26 | Outpatient (CLI) | payer MEDICARE, OTHER ==
[~2021-02-26] MED LIST changes: +BUPIVACAINE MPF 0.25% 10 ML VIAL. ONE; +IOHEXOL 180 MG/ML 10 ML VIAL. ONE; +methylPREDNISolone ACETATE 40 MG/ML VIAL. ONE; +methylPREDNISolone ACETATE 80 MG/ML VIAL. ONE
--- NOTE | 2021-02-26 14:53 | PDOC ---
Progress Note - Pain Clinic Date of Service: DOS: DATE: 02/26/21 TIME: 14:49 Diagnosis: Dx: Lumbar degenerative disc disease with lumbar spinal stenosis with neurogenic claudication post lumbar macular syndrome and lumbar and lumbosacral spondylosis History or Present Illness: HPI: 70-year-old male returns to follow-up status post lumbar epidural steroid injections x3. Patient reports good decrease in pain about 80% but only lasting for 1 to 2 weeks at the most patient reports pain is creasing the low across the low back and is no longer as problematic in the lower extremities patient reports some pain in the hips but mostly in the low back itself worse with standing walking better with sitting but if he sits for more than 20 to 30 minutes the pain begins to return in the back as well patient reports is a 9 on scale 10 is worst over the past week 9 on average 8 its least is 8 today patient reports that sharp and tight tingling burning stabbing can be constant severe and unbearable in the low back specially with walking and standing for more than 10 to 15 minutes. Patient reports no new motor or sensory deficits initially was doing better with walking and doing household activities standing for greater durations but the pain is returning now fairly significantly patient reports occasionally wakes him from sleep but not most nights. Patient reports no new motor or sensory deficits no new bowel or bladder incontinence. Physical Exam: VS: Blood pressure is 135/95 pulse 76 respirations 18 temperature 98.5 F height 5 feet 10 inches weight is 266 pounds PE: PHYSICAL EXAMINATION: GENERAL: The patient is awake, alert, oriented, appropriate, very pleasant demeanor HEENT: Shows normocephalic, atraumatic. Extraocular movements are intact and symmetrical. Oral cavity: Mucous membranes moist and pink. NECK: Shows anterior throat supple without palpable lymphadenopathy noted. Swallow reflex symmetrical. CHEST: Shows normal on inspection. Breath sounds are clear bilaterally. HEART: Shows S1, S2 clear. No murmurs auscultated. ABDOMEN: Soft, nontender, nondistended. No palpable organomegaly is noted. No rebound or guarding demonstrated. BACK: Shows spine grossly in the midline. Normal-appearing cervical lordotic curvature. There is slightly increased thoracic kyphosis, some minor flattening of the lumbar lordotic curvature. Well-healed surgical scar is noted in the midline. Lumbar paraspinous muscles show symmetrical on inspection, on palpation shows some moderate tenderness diffusely throughout the upper, middle and lower distribution of the paraspinous muscles without specific trigger points, without radiation of pain. The patient has good rotational motion of the lumbar spine, with moderate pain with right and left lateral rotation greater than 10 degrees and significant pain with extension and axial loading of the lumbar spine greater than 10 degrees posteriorly 45 degrees forward flexion is performed without significant pain and without difficulty. EXTREMITIES: Lower extremities show deep tendon reflexes 1+ in the patellar and tendo calcaneus tendons. Motor exam is 4 on a scale of 5 with right jaret siflexion, extension, quadriceps and hamstring flexion and 4/5 on the left. Peripheral pulses are 1 posterior tibial. No peripheral edema is noted bilaterally. Lower extremities are warm and dry to touch, equal in color and appearance. SKIN: Shows warm and dry, good turgor. No edema. No sores, rashes or bruising throughout. Procedure: Procedure: Options were discussed with patient. Patient chart was reviewed as was his current medication regimen updated current review systems updated today as well. We will proceed with bilateral L4-5 and L5-S1 facet medial branch injections today with fluoroscopic guidance. Risks were discussed including but not limited to: Bleeding, infection, possibility of epidural hematoma and subsequent neurological compromise, dural puncture, headaches, spinal cord and/or nerve damage, side effects of steroid medication, and poor results regarding pain control. Patient understands and wished to proceed. Patient will return to the clinic in approximate 2 weeks for follow-up, was counseled as return appointment activity level and side effects to be aware of. Medication Injected: Med Injected: Under sterile prep and drape using C-arm fluoroscopic guidance AP and lateral and oblique views, bilateral L4-5 and L5-S1 facet joint injections were performed, medications injected: 120 mg Depo-Medrol +4 cc 0.25% bupivacaine +2 cc contrast. Condition at discharge stable patient tolerated the procedure well and no complications. Condition at Discharge: Condition at Discharge: Condition at discharge stable, patient already procedure well and had no complications. JULIANNE CLEMENT MD February 26, 2021 14:53
--- NOTE | 2021-02-26 14:56 | PDOC4 ---
PROCEDURE Procedure Patient was consented for bilateral L4-5 and L5-S1 facet joint medial branch blocks with fluoroscopic guidance. Risks were discussed including but not limited to: Bleeding, infection, possibility of epidural hematoma and subsequent neurological compromise, dural puncture, headaches, spinal cord and/or nerve damage, side effects of steroid medication, and poor results regarding pain control. Patient understands and wished to proceed. Under sterile prep and drape using C-arm fluoroscopic guidance AP and lateral and oblique views, bilateral L4-5 and L5-S1 facet joint injections were performed, medications injected: 120 mg Depo-Medrol +4 cc 0.25% bupivacaine +2 cc contrast. Condition at discharge stable patient tolerated the procedure well and no complications. JULIANNE CLEMENT MD February 26, 2021 14:56
== END | disposition home or self-care (01) ==
LOC: PNCL 13:46
PROVIDERS: ATTEND Anesthesiology
DX: M51.36 Other intervertebral disc degeneration, lumbar region (principal); M48.062 Spinal stenosis, lumbar region with neurogenic claudication; M96.1 Postlaminectomy syndrome, not elsewhere classified; M47.817 Spondylosis without myelopathy or radiculopathy, lumbosacral region; M54.5 Low back pain; E78.00 Pure hypercholesterolemia, unspecified; J44.9 Chronic obstructive pulmonary disease, unspecified; I48.91 Unspecified atrial fibrillation; I13.0 Hypertensive heart and chronic kidney disease with heart failure and stage 1 through stage 4 chronic kidney disease, or unspecified chronic kidney disease; I50.9 Heart failure, unspecified; E11.22 Type 2 diabetes mellitus with diabetic chronic kidney disease; N18.30 Chronic kidney disease, stage 3 unspecified; M19.90 Unspecified osteoarthritis, unspecified site; F41.9 Anxiety disorder, unspecified; F32.9 Major depressive disorder, single episode, unspecified; I25.10 Atherosclerotic heart disease of native coronary artery without angina pectoris; F17.210 Nicotine dependence, cigarettes, uncomplicated; Z85.828 Personal history of other malignant neoplasm of skin; Z79.82 Long term (current) use of aspirin; Z79.4 Long term (current) use of insulin; Z79.899 Other long term (current) drug therapy; Z98.890 Other specified postprocedural states; Z88.0 Allergy status to penicillin; Z88.8 Allergy status to other drugs, medicaments and biological substances; Z88.2 Allergy status to sulfonamides; Z91.041 Radiographic dye allergy status
CPT/HCPCS: 64493; 64494; J1030; J1040; J3490; Q9965

== ENCOUNTER → 2021-04-23 | Outpatient (CLI) | payer MEDICARE, OTHER ==
--- NOTE | 2021-04-23 10:47 | PDOC ---
Progress Note - Pain Clinic Date of Service: DOS: DATE: 04/23/21 TIME: 10:43 Diagnosis: Dx: Lumbar degenerative disc disease with lumbar spinal stenosis and postlaminectomy syndrome with lumbar and lumbosacral spondylosis History or Present Illness: HPI: 70-year-old male returns to follow-up status post bilateral L4-5 and L5-S1 medial branch facet blocks. Patient reports about 90% improvement for the first 10 days now about 50% improvement and pain returning in the low back bilaterally worse on the right than the left and present bilaterally worse with walking standing changing positions and sitting for prolonged periods patient rates a 10 on scale 10 is worse over the past week 10 on average 9 its least and 9 today patient ports burning and stabbing severe in the low back itself no longer radiating to the lower extremities however. Patient reports with repetitive bending and stooping as he been doing some yard work lately the pain is much more noticeable again more on the right but present bilaterally. Patient reports new medication started taking Tylenol extra strength 650 mg instead of 325 twice a day and this seems to be helping to moderate stent but still only about 20 to 25% improvement with the medication. Patient reports no new motor or sensory deficits no new bowel or bladder complaints reports initially was doing much better with walking doing household activities working activities travel with greater ease and comfort still sleeping well at night generally is not bothering him from sleep. Patient reports no new motor or sensory deficits no bowel or bladder incontinence. Physical Exam: VS: Blood pressure 116/90 pulse 81 respirations 18 temperature 98 point admission height 5 feet 10 inches weight 254 pounds PE: PHYSICAL EXAMINATION: GENERAL: The patient is awake, alert, oriented, appropriate, very pleasant in demeanor. HEENT: Shows normocephalic, atraumatic. Extraocular movements are intact and symmetrical. NECK: Shows anterior throat supple without palpable lymphadenopathy noted. Swallow reflex symmetrical. CHEST: Shows normal on inspection. Breath sounds are clear bilaterally, no rales or rhonchi. HEART: Shows S1, S2 clear. No murmurs auscultated. ABDOMEN: Soft, nontender, nondistended, obese. BACK: Shows spine grossly in the midline. Normal-appearing cervical lordotic curvature. There is slightly increased thoracic kyphosis, some minor flattening of the lumbar lordotic curvature. Lumbar paraspinous muscles show symmetrical on inspection, on palpation shows some moderate tenderness diffusely throughout the upper, middle and lower distribution of the paraspinous muscles without specific trigger points, without radiation of pain. The patient has good rotational motion of the lumbar spine, both laterally as well as extension and flexion with significant pain with right lateral rotation past 10 degrees as well as moderate pain with left lateral rotation 10 degrees extension at 10 degrees and significantly tender bilaterally again worse on the right much more severe however with axial loading and extension of the lumbar spine with forward flexion 45 degrees the pain is decreased. No tenderness over the spinous processes, sacrum or sacroiliac regions. EXTREMITIES: Lower extremities show deep tendon reflexes 1+ in the patellar and tendo calcaneus tendons. Motor exam is 4 on a scale of 5 with right dorsiflexion, extension, quadriceps and hamstring flexion and 4/5 on the left. Peripheral pulses are 1+ posterior tibial. No peripheral edema is noted bilater ally. Lower extremities are warm and dry to touch, equal in color and appearance. SKIN: Shows warm and dry, good turgor. No edema. No sores, rashes or bruising throughout. Procedure: Procedure: Options discussed with patient. Patient's old chart was reviewed his current medication regimen updated current review of systems updated today as well. We will proceed with a repeat L4-5 and L5-S1 medial branch facet blocks today with fluoroscopic guidance. Risks were discussed including but not limited to: Bleeding, infection, possibility of epidural hematoma and subsequent neurological compromise, dural puncture, headaches, spinal cord and/or nerve damage, side effects of steroid medication, and poor results regarding pain co ntrol. Patient understands and wished to proceed. Patient will return to the clinic in approximate 2 weeks for follow-up, was counseled as return appointment activity level and side effects to be aware of. We did discuss potential radiofrequency ablation if results are similar with significant pain reduction. Patient is interested and agrees. Medication Injected: Med Injected: Under sterile prep and drape using C-arm fluoroscopic guidance AP and lateral and oblique views, bilateral L4-5 and L5-S1 facet joint MB's injections were performed, using quinke needles with stylette's x4,, medications injected: 120 mg Depo-Medrol +4 cc 0.25% bupivacaine +2 cc contrast. Condition at discharge stable patient tolerated the procedure well and no complications. Condition at Discharge: Condition at Discharge: Condition at discharge stable, patient alert procedure well and had no complications. JULIANNE CLEMENT MD Apr 23, 2021 10:47
--- NOTE | 2021-04-23 10:47 | PDOC4 ---
Procedure Note: Procedure Note: Patient was consented for bilateral lumbar facet medial branch blocks with fluoroscopic guidance. Risks were discussed including but not limited to: Bleeding, infection, possibility of epidural hematoma and subsequent neurological compromise, dural puncture, headaches, spinal cord and/or nerve damage, side effects of steroid medication, and poor results regarding pain control. Patient understands and wished to proceed. Under sterile prep and drape using C-arm fluoroscopic guidance AP and lateral and oblique views, bilateral L4-5 and L5-S1 facet joint MB's injections were performed, using quinke needles with stylette's x4,, medications injected: 120 mg Depo-Medrol +4 cc 0.25% bupivacaine +2 cc contrast. Condition at discharge stable patient tolerated the procedure well and no complications. JULIANNE CLEMENT MD Apr 23, 2021 10:47
== END | disposition home or self-care (01) ==
LOC: PNCL 09:57
PROVIDERS: ATTEND Anesthesiology
DX: M51.36 Other intervertebral disc degeneration, lumbar region (principal); M48.061 Spinal stenosis, lumbar region without neurogenic claudication; M96.1 Postlaminectomy syndrome, not elsewhere classified; M47.817 Spondylosis without myelopathy or radiculopathy, lumbosacral region; I13.0 Hypertensive heart and chronic kidney disease with heart failure and stage 1 through stage 4 chronic kidney disease, or unspecified chronic kidney disease; I50.9 Heart failure, unspecified; I25.10 Atherosclerotic heart disease of native coronary artery without angina pectoris; N18.30 Chronic kidney disease, stage 3 unspecified; I48.91 Unspecified atrial fibrillation; E78.00 Pure hypercholesterolemia, unspecified; M19.90 Unspecified osteoarthritis, unspecified site; E11.22 Type 2 diabetes mellitus with diabetic chronic kidney disease; F41.9 Anxiety disorder, unspecified; F32.9 Major depressive disorder, single episode, unspecified; F17.210 Nicotine dependence, cigarettes, uncomplicated; Z85.828 Personal history of other malignant neoplasm of skin; Z79.899 Other long term (current) drug therapy; Z98.890 Other specified postprocedural states; Z79.82 Long term (current) use of aspirin; Z79.4 Long term (current) use of insulin; Z88.0 Allergy status to penicillin; Z88.2 Allergy status to sulfonamides; Z91.013 Allergy to seafood; Z88.8 Allergy status to other drugs, medicaments and biological substances; Z91.041 Radiographic dye allergy status
CPT/HCPCS: 64493; 64494; J1030; J1040; J3490; Q9965

== ENCOUNTER → 2021-07-30 | Outpatient (CLI) | payer MEDICARE, OTHER ==
[~2021-07-30] MED LIST changes: -BUPIVACAINE MPF 0.25% 10 ML VIAL. ONE; +DOCU-148 PO; -DOCU-153 PO; -IOHEXOL 180 MG/ML 10 ML VIAL. ONE; -methylPREDNISolone ACETATE 40 MG/ML VIAL. ONE; -methylPREDNISolone ACETATE 80 MG/ML VIAL. ONE
--- NOTE | 2021-07-30 14:25 | PDOC ---
Progress Note - Pain Clinic Date of Service: DOS: DATE: 07/30/21 TIME: 14:21 Diagnosis: Dx: Lumbar radiculopathy lumbar degenerative disease and lumbar spinal stenosis with lumbar postlaminectomy syndrome Lumbar and lumbosacral spondylosis History or Present Illness: HPI: 70-year-old male returns for follow-up status post bilateral L3-4-5 and L5-S1 medial branch facet block last seen April. Patient reports he did very well with about 75 to 80% improvement initially now about 40% the pain is returning and now has different pain radiating in the bilateral lower extremities posterior gluteus posterior thigh posterior calves into the feet and ankles bilaterally. Patient reports pain a 10 on scale 10 is worst 9 on average 9 at its least is a 9 today. Patient scribes pain is burning stabbing sharp tight shooting can be severe and unbearable with walking standing changing positions better with sitting or laying down generally does not awaken from sleep however. Patient reports no bowel or bladder incontinence no loss of motor function. Physical Exam: VS: Blood pressure is 156/93 pulse 76 respirations 18 temperature is 90.1 F height is 5 feet 10 inches weight is 264 pounds PE: PHYSICAL EXAMINATION: GENERAL: The patient is awake, alert, oriented, appropriate, very pleasant in demeanor HEENT: Shows normocephalic, atraumatic. Extraocular movements are intact and symmetrical. Oral cavity: Mucous membranes moist and pink. NECK: Shows anterior throat supple without palpable lymphadenopathy noted. Swallow reflex symmetrical. CHEST: Shows normal on inspection. Breath sounds are clear bilaterally, distant but no rales rhonchi. HEART: Shows S1, S2 clear. No murmurs auscultated. ABDOMEN: Soft, nontender, nondistended, obese. No palpable organomegaly is noted. BACK: Shows spine grossly in the midline. Normal-appearing cervical lordotic curvature. There is increased thoracic kyphosis, with sebaceous cyst in the upper left thoracic distribution some flattening of the lumbar lordotic curvature. Lumbar paraspinous muscles show symmetrical on inspection, on palpation shows some moderate tenderness diffusely throughout the upper, middle and lower distribution of the paraspinous muscles without specific trigger points, without radiation of pain. The patient has good rotational motion of the lumbar spine, both laterally as well as extension and flexion with moderate tenderness with extension and axial loading lumbar spine but with forward flexion which is performed fully at 45 degrees some mild pain with right and left lateral rotation greater than 10 degrees. No tenderness over the spinous processes, sacrum or sacroiliac regions. EXTREMITIES: Lower extremities show deep tendon reflexes 1+ in the patellar and tendo calcaneus tendons. Motor exam is 4 on a scale of 5 with right dorsiflexion, extension, quadriceps and hamstring flexion and 4/5 on the left. Peripheral pulses are 1+ posterior tibial. No peripheral edema is noted bilaterally. Lower extremities are warm and dry to touch, equal in color and appearance. SKIN: Shows warm and dry, good turgor. No edema. No sores, rashes or bruising throughout. Procedure: Procedure: Options were discussed with patient. Patient chart reviews his current medication regimen updated current review of systems updated today as well. We will patient return after his sebaceous cyst is excised as he would feel more comfortable waiting until this is done prior to any further treatment on his low back and will plan a lumbar epidural steroid injection for his radicular pattern pain at that time. In the meantime, patient will continue with stretching strength exercises and oral analgesics as currently. Medication Injected: Med Injected: None Condition at Discharge: Condition at Discharge: Condition at discharge is stable. JULIANNE CLEMENT MD Jul 30, 2021 14:25
== END | disposition home or self-care (01) ==
LOC: PNCL 13:51
PROVIDERS: ATTEND Anesthesiology
DX: M51.16 Intervertebral disc disorders with radiculopathy, lumbar region (principal); M48.061 Spinal stenosis, lumbar region without neurogenic claudication; M96.1 Postlaminectomy syndrome, not elsewhere classified; M47.27 Other spondylosis with radiculopathy, lumbosacral region; I13.0 Hypertensive heart and chronic kidney disease with heart failure and stage 1 through stage 4 chronic kidney disease, or unspecified chronic kidney disease; I50.9 Heart failure, unspecified; E78.00 Pure hypercholesterolemia, unspecified; N18.30 Chronic kidney disease, stage 3 unspecified; E11.22 Type 2 diabetes mellitus with diabetic chronic kidney disease; I48.91 Unspecified atrial fibrillation; M19.90 Unspecified osteoarthritis, unspecified site; F41.9 Anxiety disorder, unspecified; F32.9 Major depressive disorder, single episode, unspecified; I25.10 Atherosclerotic heart disease of native coronary artery without angina pectoris; F17.210 Nicotine dependence, cigarettes, uncomplicated; Z85.828 Personal history of other malignant neoplasm of skin; Z79.82 Long term (current) use of aspirin; Z79.4 Long term (current) use of insulin; Z79.899 Other long term (current) drug therapy; Z98.890 Other specified postprocedural states; Z88.0 Allergy status to penicillin; Z88.2 Allergy status to sulfonamides; Z91.013 Allergy to seafood; Z88.8 Allergy status to other drugs, medicaments and biological substances
CPT/HCPCS: 99212; G0463

== ENCOUNTER → 2021-08-18 | Outpatient (CLI) | payer MEDICARE, OTHER ==
[~2021-08-18] MED LIST changes: +DONE-51 PO; -DONE10TA14 PO; +IOHEXOL 180 MG/ML 10 ML VIAL. ONE; +methylPREDNISolone ACETATE 40 MG/ML VIAL. ONE; +methylPREDNISolone ACETATE 80 MG/ML VIAL. ONE
--- NOTE | 2021-08-18 15:04 | PDOC4 ---
Procedure Note: ICD 10 Code: ICD 10 Code: M54.17 M4 8.09 M 96.1 M4 7.816 M4 7.817 Procedure Note: Patient was consented for lumbar epidural steroid injection with fluoroscopic guidance. Risks were discussed including but not limited to: Bleeding, infection, possibility of epidural hematoma and subsequent neurological compromise, dural puncture, headaches, spinal cord and/or nerve damage, side effects of steroid medication, and poor results regarding pain control. Patient understands and wished to proceed. Procedure is lumbar epidural steroid injection under local anesthetic using sterile prep and drape at the L5-S1 level using C-arm fluoroscopic guidance in both AP and lateral views medications injected is 120 mg Depo-Medrol +10mL preservative-free normal saline and 2 mL contrast- condition at discharge is stable patient tolerated procedure well had no complications. JULIANNE CLEMENT MD Aug 18, 2021 15:04
--- NOTE | 2021-08-18 15:04 | PDOC ---
Progress Note - Pain Clinic Date of Service: DOS: DATE: 08/18/21 TIME: 15:01 Diagnosis: Dx: Lumbar radiculopathy with lumbar degenerative disease and lumbar spinal stenosis with postlaminectomy syndrome and lumbar and lumbosacral spondylosis History or Present Illness: HPI: 70-year-old male returns for follow-up after valuation and continues to have pain low back and bilateral lower extremities posterior gluteus posterior thigh posterior calf to the ankles bilaterally and right essentially equal to the left and across the low back patient reports is a 10 on scale 10 is average worst and a 9 its least is a 10 today patient which is aching sharp shooting stabbing tingling can be radiating constant low back worse with walking standing better with sitting or laying down but does awaken from sleep at least once or twice a night patient reports sitting in a reclining chair helps decrease the pain but not 100%. Patient reports no bowel or bladder incontinence and some significant fatigability of the lower extremities but without motor loss. Physical Exam: VS: Blood pressure is 170/89 pulse 66 respirations 18 temperature 98.6 F height is 5 foot 10 inches weight is 264 pounds. PE: PHYSICAL EXAMINATION: GENERAL: The patient is awake, alert, oriented, appropriate, very pleasant in demeanor HEENT: Shows normocephalic, atraumatic. Extraocular movements are intact and symmetrical. Oral cavity: Mucous membranes moist and pink. NECK: Shows anterior throat supple without palpable lymphadenopathy noted. Swallow reflex symmetrical. CHEST: Shows normal on inspection. Breath sounds are clear bilaterally, no r ales rhonchi or wheezes auscultated. HEART: Shows S1, S2 clear. No murmurs auscultated. ABDOMEN: Soft, nontender, nondistended. No palpable organomegaly is noted. BACK: Shows spine grossly in the midline. Normal-appearing cervical lordotic curvature. There is slightly increased thoracic kyphosis, some minor flattening of the lumbar lordotic curvature. Lumbar paraspinous muscles show symmetrical on inspection, on palpation shows some moderate tenderness diffusely throughout the upper, middle and lower distribution of the paraspinous muscles, but without specific trigger points, without radiation of pain. The patient has good rotational motion of the lumbar spine, both laterally as well as extension and flexion without significant difficulty. EXTREMITIES: Lower extremities show deep tendon reflexes 1+ in the patellar and tendo calcaneus tendons. Motor exam is 4 on a scale of 5 with right dorsiflexion, extension, quadriceps and hamstring flexion and 4/5 on the left. Peripheral pulses are 1 posterior tibial. No peripheral edema is noted bilaterally. Lower extremities are warm and dry to touch, equal in color and appearance. SKIN: Shows warm and dry, good turgor. No edema. No sores, rashes or bruising throughout. Procedure: Procedure: Options discussed with the patient. Patient chart was reviewed his current medication regimen updated current review of systems updated today as well. We will proceed with the lumbar epidural steroid injection today with fluoroscopic guidance. Risks were discussed including but not limited to: Bleeding, infection, possibility of epidural hematoma and subsequent neurological compromise, dural puncture, headaches, spinal cord and/or nerve damage, side effects of steroid medication, and poor results regarding pain control. Patient understands and wished to proceed. Patient will return to clinic in approximate 2 weeks for follow-up, was counseled return appointment, activity, and side effect to be aware of. Medication Injected: Med Injected: Procedure is lumbar epidural steroid injection under local anesthetic using sterile prep and drape at the L5-S1 level using C-arm fluoroscopic guidance in both AP and lateral views medications injected is 120 mg Depo-Medrol +10mL preservative-free normal saline and 2 mL contrast- condition at discharge is stable patient tolerated procedure well had no complications. Condition at Discharge: Condition at Discharge: Condition at discharge is stable, patient tolerated the procedure well and had no complications. JULIANNE CLEMENT MD Aug 18, 2021 15:04
== END | disposition home or self-care (01) ==
LOC: PNCL 13:53
PROVIDERS: ATTEND Anesthesiology
DX: M51.16 Intervertebral disc disorders with radiculopathy, lumbar region (principal); M48.061 Spinal stenosis, lumbar region without neurogenic claudication; M96.1 Postlaminectomy syndrome, not elsewhere classified; M47.27 Other spondylosis with radiculopathy, lumbosacral region; I13.0 Hypertensive heart and chronic kidney disease with heart failure and stage 1 through stage 4 chronic kidney disease, or unspecified chronic kidney disease; I50.9 Heart failure, unspecified; E11.22 Type 2 diabetes mellitus with diabetic chronic kidney disease; N18.30 Chronic kidney disease, stage 3 unspecified; I48.91 Unspecified atrial fibrillation; E78.00 Pure hypercholesterolemia, unspecified; J44.9 Chronic obstructive pulmonary disease, unspecified; M19.90 Unspecified osteoarthritis, unspecified site; F41.9 Anxiety disorder, unspecified; F32.9 Major depressive disorder, single episode, unspecified; F17.210 Nicotine dependence, cigarettes, uncomplicated; Z85.828 Personal history of other malignant neoplasm of skin; Z79.82 Long term (current) use of aspirin; Z79.4 Long term (current) use of insulin; Z79.899 Other long term (current) drug therapy; Z98.890 Other specified postprocedural states; Z72.89 Other problems related to lifestyle; Z88.0 Allergy status to penicillin; Z88.2 Allergy status to sulfonamides; Z91.041 Radiographic dye allergy status; Z91.013 Allergy to seafood
CPT/HCPCS: 62323; J1030; J1040; Q9965

== ENCOUNTER → 2021-09-10 | Outpatient (CLI) | payer MEDICARE, OTHER ==
[~2021-09-10] MED LIST changes: -IOHEXOL 180 MG/ML 10 ML VIAL. ONE; -methylPREDNISolone ACETATE 40 MG/ML VIAL. ONE; -methylPREDNISolone ACETATE 80 MG/ML VIAL. ONE
--- NOTE | 2021-09-10 13:23 | PDOC ---
Progress Note - [facility] Date of Service: DOS: DATE: 09/10/21 TIME: 13:19 Diagnosis: Dx: Lumbar radiculopathy with lumbar degenerative disease lumbar spinal stenosis and lumbar postlaminectomy syndrome Lumbar and lumbosacral spondylosis History or Present Illness: HPI: 71-year-old male returns in follow-up status post lumbar epidural steroid injection x1. Patient reports he did about 80% better after the first injection now about 50% better but still significantly improved with the pain in the low back and bilateral lower extremities patient reports increase activities greater ease and comfort travel with greater ease doing household activities sleeping much better does not awaken from sleep at night patient reports no new motor or sensory deficits no new bowel or bladder incontinence is very pleased with progress as far patient reports still some pain in the low back in the lower extremities bilaterally posterior gluteus posterior thighs but much less radiation to lower extremities at this point patient reports is dull and aching in the back shooting in the legs at times cramping in the back but only on and off intensity only fairly minimal. Patient reports no new changes or deficits. Physical Exam: VS: Blood pressure is 176/94 pulse 81 respirations are 18 temperature is 98.3 F height is 5 foot 10 inches weight is 263 pounds PE: PHYSICAL EXAMINATION: GENERAL: The patient is awake, alert, oriented, appropriate, very pleasant in demeanor HEENT: Shows normocephalic, atraumatic. Extraocular movements are intact and symmetrical. Oral cavity: Mucous membranes moist and pink. NECK: Shows anterior throat supple without palpable lymphadenopathy noted. Swallow reflex symmetrical. CHEST: Shows normal on inspection. Breath sounds are clear bilaterally, distant but no rales or rhonchi or wheezes auscultated. HEART: Shows S1, S2 clear. No murmurs auscultated. ABDOMEN: Soft, nontender, nondistended, obese. No palpable organomegaly is noted. BACK: Shows spine grossly in the midline. Normal-appearing cervical lordotic curvature. There is increased thoracic kyphosis, some flattening of the lumbar lordotic curvature. Lumbar paraspinous muscles show symmetrical on inspection, on palpation shows some moderate tenderness diffusely throughout the upper, middle and lower distribution of the paraspinous muscles without specific trigger points, without radiation of pain. The patient has good rotational motion of the lumbar spine, both laterally as well as extension and flexion wit hout significant difficulty. No tenderness over the spinous processes, sacrum or sacroiliac regions. EXTREMITIES: Lower extremities show deep tendon reflexes 1+ in the patellar and tendo calcaneus tendons. Motor exam is 4 on a scale of 5 with right dorsi flexion, extension, quadriceps and hamstring flexion and 4/5 on the left. Peripheral pulses are 1+ posterior tibial. No peripheral edema is noted bilaterally. Lower extremities are warm and dry to touch, equal in color and appearance. SKIN: Shows warm and dry, good turgor. No edema. No sores, rashes or bruising throughout. Procedure: Procedure: Options were discussed with patient. Patient's old chart was reviewed his current medication regimen updated current review of systems updated today as well. We will hold any further injections at this time as patient is doing much better and is quite pleased with his progress thus far. Patient was encouraged to maintain activity level as tolerated to keep stretching and strength exercises as well and oral analgesics as necessary. Patient will follow up at this time on as-needed basis. Medication Injected: Med Injected: None Condition at Discharge: Condition at Discharge: Condition at discharge is stable. JULIANNE CLEMENT MD Sep 10, 2021 13:23
== END | disposition home or self-care (01) ==
LOC: PNCL 13:01
PROVIDERS: ATTEND Anesthesiology
DX: M51.16 Intervertebral disc disorders with radiculopathy, lumbar region (principal); M48.061 Spinal stenosis, lumbar region without neurogenic claudication; M96.1 Postlaminectomy syndrome, not elsewhere classified; M47.26 Other spondylosis with radiculopathy, lumbar region; I13.0 Hypertensive heart and chronic kidney disease with heart failure and stage 1 through stage 4 chronic kidney disease, or unspecified chronic kidney disease; I50.9 Heart failure, unspecified; E11.22 Type 2 diabetes mellitus with diabetic chronic kidney disease; N18.30 Chronic kidney disease, stage 3 unspecified; I48.91 Unspecified atrial fibrillation; E78.00 Pure hypercholesterolemia, unspecified; J44.9 Chronic obstructive pulmonary disease, unspecified; I25.10 Atherosclerotic heart disease of native coronary artery without angina pectoris; F41.9 Anxiety disorder, unspecified; F32.9 Major depressive disorder, single episode, unspecified; M19.90 Unspecified osteoarthritis, unspecified site; F17.210 Nicotine dependence, cigarettes, uncomplicated; Z85.828 Personal history of other malignant neoplasm of skin; Z79.899 Other long term (current) drug therapy; Z98.890 Other specified postprocedural states; Z79.82 Long term (current) use of aspirin; Z79.84 Long term (current) use of oral hypoglycemic drugs; Z88.0 Allergy status to penicillin; Z88.2 Allergy status to sulfonamides; Z91.041 Radiographic dye allergy status; Z91.013 Allergy to seafood; Z72.89 Other problems related to lifestyle; Z82.49 Family history of ischemic heart disease and other diseases of the circulatory system
CPT/HCPCS: 99212; G0463